=== PATIENT | male | born 1955 | race Caucasian/White ===

== ENCOUNTER 2023-06-11 10:29 | Inpatient (IN) | payer OTHER, MEDICARE ==
[~2023-06-11] VITALS: Ht 172.7 cm; Wt 97.1 kg
[2023-06-11 11:06] LABS: BASOPHILS # (AUTO) 0.1 K/uL (0.0-0.2); BASOPHILS % (AUTO) 0.5 % (0.0-2.0); EOSINOPHILS % (AUTO) 0.1 % (0.0-6.0); HEMATOCRIT 49 % (39-51); HEMOGLOBIN 15.9 g/dL (13.5-17.5); LYMPHOCYTES % (AUTO) 7.4 % (20.0-44.0); MEAN CORPUSCULAR HEMOGLOBIN 29 PG (26.0-33.0); MEAN CORPUSCULAR HGB CONC 33 g/dl (31.0-36.0); MEAN CORPUSCULAR VOLUME 89 fL (80-96); MONOCYTES # (AUTO) 0.7 K/uL (0.1-1.30); MONOCYTES % (AUTO) 5.6 % (2.0-12.0); NEUTROPHILS # (AUTO) 11.1 K/uL (1.8-8.9); NEUTROPHILS % (AUTO) 86.4 % (43.0-81.0); PLATELET COUNT (AUTO) 397 K/uL (150-450); RED BLOOD CELL COUNT(AUTO) 5.51 MIL/uL (4.5-6.0); RED CELL DISTRIBUTION WIDTH 14.1 % (11.5-15.0); WHITE BLOOD COUNT (AUTO) 12.8 K/uL (4.3-11.0)
[2023-06-11 11:21] LABS: INR 1.08 (0.91-1.10); PARTIAL THROMBOPLASTIN TIME 27.2 SEC (24.3-34.3); PROTHROMBIN TIME 11.1 SECS (9.2-11.1)
[2023-06-11 11:32] LABS: ALANINE AMINOTRANSFERASE 13 U/L (12-78); ALKALINE PHOSPHATASE 81 U/L (46-116); ASPARTATE AMINOTRANSFERASE 19 U/L (15-37); BILIRUBIN,DIRECT 0.2 mg/dL (0.0-0.2); BILIRUBIN,TOTAL 0.9 mg/dL (0.2-1.0); CALCIUM, SERUM 9.2 mg/dL (8.5-10.1); CARBON DIOXIDE 21 mmol/L (21-32); CHLORIDE 96 mmol/L (98-107); CREATININE 1.4 mg/dL (0.6-1.3); GLUCOSE 394 mg/dL (74-106); NT-PRO BNP 4394 pg/mL (0-125); POTASSIUM 5.3 mmol/L (3.5-5.1); SODIUM SERUM 132 mmol/L (136-145); TOTAL PROTEIN, SERUM 7.9 g/dL (6.4-8.2); UREA NITROGEN, BLOOD 32 mg/dL (7-18)
[2023-06-11] MEDS ORDERED: METOPROLOL TARTRATE INJ 5 MG/5 ML AMPUL ONE ×2 (11:56→12:07)
[2023-06-11] MEDS: METOPROLOL TARTRATE INJ 5 MG/5 ML AMPUL IV ONE ×2 (11:59→12:25)
[2023-06-11] MEDS ORDERED: METOPROLOL SUCCINATE 25 MG TAB.SR.24H ONE (13:10)
[2023-06-11] MEDS: METOPROLOL SUCCINATE 50 MG TAB.SR.24H PO SCH (13:27)
[2023-06-11] MEDS ORDERED: ENOXAPARIN SODIUM 100 MG/ML DISP.SYRIN SQ ONE (13:36)
[2023-06-11] MEDS: ENOXAPARIN SODIUM 100 MG/ML DISP.SYRIN SQ ONE (13:40)
[2023-06-11 14:17] LABS: THYROID STIMULATING HORMONE 0.666 uIU/mL (0.358-3.74)
[2023-06-11] MEDS ORDERED: MAG HYDROX/AL HYDROX/SIMETH 30 ML UDC PO PRN (17:30)
[2023-06-11] MEDS ORDERED: MAGNESIUM HYDROXIDE 30 ML UDC PO PRN (17:30)
[2023-06-11] MEDS ORDERED: Z GUARD REMEDY 4 OZ OINT TP PRN (17:30)
[2023-06-11] MEDS ORDERED: DICL100G26 TP (20:11)
[2023-06-11] MEDS ORDERED: GABA-532 PO (20:11)
[2023-06-11] MEDS ORDERED: SENN-261 PO (20:11)
[2023-06-11] MEDS ORDERED: LISI10TA29 PO (20:11)
[2023-06-11] MEDS ORDERED: IPRA3AMP23 IH (20:11)
[2023-06-11] MEDS ORDERED: HYDR-4076 PO (20:11)
[2023-06-11] MEDS ORDERED: POLY17PO4 PO (20:11)
[2023-06-11] MEDS ORDERED: ATOR80TA PO (20:11)
[2023-06-11] MEDS ORDERED: NALO4SPR BNOSTRILS (20:11)
[2023-06-11] MEDS ORDERED: ACET325T53 PO (20:11)
[2023-06-11] MEDS ORDERED: INSU100I47 SQ (20:11)
[2023-06-11] MEDS ORDERED: NA P133E RC (20:11)
[2023-06-11] MEDS ORDERED: GLUC1KIT IM (20:11)
[2023-06-11] MEDS ORDERED: LINA5TAB PO (20:11)
[2023-06-11] MEDS ORDERED: CARV3.122 PO (20:11)
[2023-06-11] MEDS ORDERED: INSU100I30 SQ (20:11)
[2023-06-11] MEDS ORDERED: NITR0.4T48 SL (20:11)
[2023-06-11] MEDS ORDERED: APIX2.5T PO (20:11)
[2023-06-11] MEDS ORDERED: LIDO700A30 TP ×2 (20:11)
[2023-06-11] MEDS ORDERED: ASPI-1420 PO (20:11)
[2023-06-11] MEDS ORDERED: PANT40TA2 PO (20:11)
[2023-06-11 20:35] VITALS: BP 116/94; TEMP 99; O2SAT 95
[2023-06-11] MEDS: METOPROLOL TARTRATE 25 MG TABLET PO SCH (21:23)
[2023-06-11] MEDS ORDERED: SODIUM POLYSTYRENE SULFONATE 15 G/60 ML BOTTLE ONE (21:38)
[2023-06-11] MEDS: SODIUM POLYSTYRENE SULFONATE 15 G/60 ML BOTTLE PO ONE (21:45)
[2023-06-12] VITALS (8 sets, daily range): BP systolic 87–123; BP diastolic 44–94; TEMP 98.1–99.3; O2SAT 94–96
[2023-06-12] MEDS: ENOXAPARIN SODIUM 100 MG/ML DISP.SYRIN SQ SCH (01:39)
[2023-06-12] MEDS ORDERED: DEXTROSE 50%-WATER 50 ML DISP.SYRIN IV PRN (05:30)
[2023-06-12] MEDS: INSULIN REGULAR, HUMAN 100 UNIT/ML 3 ML VIAL SQ PRN (06:02)
[2023-06-12] MEDS: BLOOD SUGAR DIAGNOSTIC 1 EACH STRIP VI SCH (06:03)
[2023-06-12] MEDS: DILTIAZEM HCL 30 MG TABLET PO SCH (06:05)
[2023-06-12 06:51] LABS: BASOPHILS # (AUTO) 0.1 K/uL (0.0-0.2); BASOPHILS % (AUTO) 0.8 % (0.0-2.0); EOSINOPHILS # (AUTO) 0.1 K/uL (0.0-0.7); EOSINOPHILS % (AUTO) 0.8 % (0.0-6.0); HEMATOCRIT 41 % (39-51); HEMOGLOBIN 13.9 g/dL (13.5-17.5); LYMPHOCYTES # (AUTO) 1.5 K/uL (0.8-4.8); LYMPHOCYTES % (AUTO) 14.2 % (20.0-44.0); MEAN CORPUSCULAR HEMOGLOBIN 30 PG (26.0-33.0); MEAN CORPUSCULAR HGB CONC 34 g/dl (31.0-36.0); MEAN CORPUSCULAR VOLUME 89 fL (80-96); MONOCYTES # (AUTO) 1.3 K/uL (0.1-1.30); MONOCYTES % (AUTO) 11.6 % (2.0-12.0); NEUTROPHILS # (AUTO) 7.9 K/uL (1.8-8.9); NEUTROPHILS % (AUTO) 72.6 % (43.0-81.0); PLATELET COUNT (AUTO) 308 K/uL (150-450); RED BLOOD CELL COUNT(AUTO) 4.66 MIL/uL (4.5-6.0); RED CELL DISTRIBUTION WIDTH 14.1 % (11.5-15.0); WHITE BLOOD COUNT (AUTO) 10.8 K/uL (4.3-11.0)
[2023-06-12 07:19] LABS: CALCIUM, SERUM 8.7 mg/dL (8.5-10.1); CREATININE 1.2 mg/dL (0.6-1.3); PHOSPHORUS 3.7 mg/dL (2.5-4.9); POTASSIUM 3.6 mmol/L (3.5-5.1)
[2023-06-12] MEDS: AMIODARONE HCL 200 MG TABLET PO SCH (09:45)
[2023-06-12] MEDS: APIXABAN 5 MG TABLET PO SCH (09:46)
[2023-06-12] MEDS ORDERED: NA PHOS,M-B/NA PHOS,DI-BA 1 EA ENEMA RC PRN (10:00)
[2023-06-12] MEDS ORDERED: ACETAMINOPHEN 325 MG TABLET PO PRN ×2 (10:00)
[2023-06-12] MEDS: IV NS 0.9% 1,000 ML IV PRN (10:02)
[2023-06-12 10:10] LABS: BASOPHILS # (AUTO) 0.1 K/uL (0.0-0.2); BASOPHILS % (AUTO) 0.6 % (0.0-2.0); EOSINOPHILS # (AUTO) 0.1 K/uL (0.0-0.7); EOSINOPHILS % (AUTO) 1.3 % (0.0-6.0); HEMATOCRIT 41 % (39-51); HEMOGLOBIN 13.5 g/dL (13.5-17.5); LYMPHOCYTES # (AUTO) 1.6 K/uL (0.8-4.8); LYMPHOCYTES % (AUTO) 14.5 % (20.0-44.0); MEAN CORPUSCULAR HEMOGLOBIN 29 PG (26.0-33.0); MEAN CORPUSCULAR HGB CONC 33 g/dl (31.0-36.0); MEAN CORPUSCULAR VOLUME 88 fL (80-96); MONOCYTES # (AUTO) 1.3 K/uL (0.1-1.30); MONOCYTES % (AUTO) 11.7 % (2.0-12.0); NEUTROPHILS # (AUTO) 8.1 K/uL (1.8-8.9); NEUTROPHILS % (AUTO) 71.9 % (43.0-81.0); PLATELET COUNT (AUTO) 297 K/uL (150-450); RED BLOOD CELL COUNT(AUTO) 4.64 MIL/uL (4.5-6.0); RED CELL DISTRIBUTION WIDTH 13.9 % (11.5-15.0); WHITE BLOOD COUNT (AUTO) 11.2 K/uL (4.3-11.0)
[2023-06-12 10:19] LABS: CALCIUM, SERUM 8.6 mg/dL (8.5-10.1); CREATININE 1.3 mg/dL (0.6-1.3); POTASSIUM 3.3 mmol/L (3.5-5.1)
[2023-06-12 10:24] LABS: ALBUMIN 2.3 g/dL (3.4-5.0); BILIRUBIN,TOTAL 0.6 mg/dL (0.2-1.0); PHOSPHORUS 3.1 mg/dL (2.5-4.9); TOTAL PROTEIN, SERUM 6.4 g/dL (6.4-8.2)
[2023-06-12] MEDS: POTASSIUM CHLORIDE 20 MEQ TAB.PRT.SR PO ONE (10:51)
[2023-06-12] MEDS: GABAPENTIN 100 MG CAPSULE PO SCH (13:51)
[2023-06-12] MEDS: SENNOSIDES 8.6 MG TABLET PO SCH (13:51)
[2023-06-12] MEDS: ACETAMINOPHEN 325 MG TABLET PO PRN (16:29)
[2023-06-12] MEDS ORDERED: APIXABAN 2.5 MG TABLET PO SCH (17:00)
[2023-06-12] MEDS: CARVEDILOL 3.125 MG TABLET PO SCH (17:00)
[2023-06-12] MEDS: IV NS 0.9% 500 ML IV ONE (18:18)
[2023-06-12] MEDS: ATORVASTATIN 40 MG TABLET PO SCH (21:42)
[2023-06-12] MEDS: *INSULIN REGULAR(HUMULIN R)HUM 100 UNIT/ML VIAL SQ PRN (21:49)
[2023-06-12] MEDS: INSULIN GLARGINE, 100 UNIT/ML CARTRIDGE SQ SCH (21:54)
[2023-06-13] VITALS (8 sets, daily range): BP systolic 91–117; BP diastolic 62–95; TEMP 91.7–98.8; O2SAT 93–97
[2023-06-13 01:26] LABS: CREATININE, URINE 159.9 MG/DL (30.0-125.0); URINE TOTAL PROTEIN 24.7 mg/dL (0-11.9)
[2023-06-13 01:41] LABS: APPEARANCE,URINE CLEAR (CLEAR); BILIRUBIN,URINE NEGATIVE (NEGATIVE); BLOOD, URINE NEGATIVE Ery/uL (NEGATIVE); COLOR,URINE YELLOW (YELLOW); KETONES,URINE NEGATIVE (NEGATIVE); LEUKOCYTE ESTERASE ,URINE NEGATIVE (NEGATIVE); NITRITE, URINE NEGATIVE (NEGATIVE); PROTEIN,URINE NEGATIVE (NEGATIVE); UGLUCOSE 3+ mg/dL (NEGATIVE); UROBILINOGEN,URINE 0.2 EU/dL (0.2)
[2023-06-13 01:42] LABS: EOSINOPHIL,URINE None Seen
[2023-06-13 07:26] LABS: BASOPHILS # (AUTO) 0.1 K/uL (0.0-0.2); BASOPHILS % (AUTO) 0.8 % (0.0-2.0); EOSINOPHILS # (AUTO) 0.4 K/uL (0.0-0.7); EOSINOPHILS % (AUTO) 4.4 % (0.0-6.0); HEMATOCRIT 38 % (39-51); HEMOGLOBIN 12.7 g/dL (13.5-17.5); LYMPHOCYTES # (AUTO) 1.7 K/uL (0.8-4.8); LYMPHOCYTES % (AUTO) 18.4 % (20.0-44.0); MEAN CORPUSCULAR HEMOGLOBIN 30 PG (26.0-33.0); MEAN CORPUSCULAR HGB CONC 33 g/dl (31.0-36.0); MEAN CORPUSCULAR VOLUME 89 fL (80-96); MONOCYTES # (AUTO) 0.9 K/uL (0.1-1.30); MONOCYTES % (AUTO) 9.5 % (2.0-12.0); NEUTROPHILS # (AUTO) 6.2 K/uL (1.8-8.9); NEUTROPHILS % (AUTO) 66.9 % (43.0-81.0); PLATELET COUNT (AUTO) 266 K/uL (150-450); RED BLOOD CELL COUNT(AUTO) 4.27 MIL/uL (4.5-6.0); RED CELL DISTRIBUTION WIDTH 13.8 % (11.5-15.0); WHITE BLOOD COUNT (AUTO) 9.3 K/uL (4.3-11.0)
[2023-06-13 08:06] LABS: CALCIUM, SERUM 8.2 mg/dL (8.5-10.1); POTASSIUM 3.2 mmol/L (3.5-5.1)
[2023-06-13] MEDS: PANTOPRAZOLE 40 MG TABLET.DR PO SCH (08:23)
[2023-06-13] MEDS: LISINOPRIL (10MG) 10 MG TABLET PO SCH (08:24)
[2023-06-13] MEDS: LINAGLIPTIN 5 MG TABLET PO SCH (08:26)
[2023-06-13] MEDS: ASPIRIN EC 81 MG TABLET.DR PO SCH (08:26)
[2023-06-13] MEDS ORDERED: POTASSIUM CHLORIDE 20 MEQ TAB.PRT.SR PO SCH (09:30)
[2023-06-13] MEDS: POTASSIUM CHLORIDE 20 MEQ TAB.PRT.SR PO SCH (09:46)
[2023-06-13] MEDS: CARVEDILOL 3.125 MG TABLET PO SCH (17:51)
[2023-06-13] MEDS: LIDOCAINE 5% (PATCH) 1 EA PATCH TP PRN (18:29)
[2023-06-13] MEDS: ONDANSETRON HCL/PF 4 MG/2 ML VIAL IVP PRN (21:40)
[2023-06-14] VITALS: BP 96/60; TEMP 99; O2SAT 94
[2023-06-14 04:00] VITALS: BP 99/73; TEMP 98.8; O2SAT 97
[2023-06-14 04:44] VITALS: BP 99/73; TEMP 98.8; O2SAT 97
[2023-06-14 06:34] LABS: BASOPHILS % (AUTO) 0.4 % (0.0-2.0); EOSINOPHILS # (AUTO) 0.5 K/uL (0.0-0.7); EOSINOPHILS % (AUTO) 4.2 % (0.0-6.0); HEMATOCRIT 37 % (39-51); HEMOGLOBIN 12.2 g/dL (13.5-17.5); LYMPHOCYTES # (AUTO) 1.2 K/uL (0.8-4.8); LYMPHOCYTES % (AUTO) 9.3 % (20.0-44.0); MEAN CORPUSCULAR HEMOGLOBIN 29 PG (26.0-33.0); MEAN CORPUSCULAR HGB CONC 33 g/dl (31.0-36.0); MEAN CORPUSCULAR VOLUME 89 fL (80-96); MONOCYTES # (AUTO) 1.2 K/uL (0.1-1.30); MONOCYTES % (AUTO) 9.2 % (2.0-12.0); NEUTROPHILS # (AUTO) 9.9 K/uL (1.8-8.9); NEUTROPHILS % (AUTO) 76.9 % (43.0-81.0); PLATELET COUNT (AUTO) 246 K/uL (150-450); RED BLOOD CELL COUNT(AUTO) 4.15 MIL/uL (4.5-6.0); RED CELL DISTRIBUTION WIDTH 13.8 % (11.5-15.0); WHITE BLOOD COUNT (AUTO) 12.9 K/uL (4.3-11.0)
[2023-06-14 07:20] LABS: BILIRUBIN,TOTAL 0.4 mg/dL (0.2-1.0); CALCIUM, SERUM 8.4 mg/dL (8.5-10.1); CREATININE 1.1 mg/dL (0.6-1.3); MAGNESIUM 1.7 mg/dL (1.8-2.4); PHOSPHORUS 3.1 mg/dL (2.5-4.9); POTASSIUM 4.2 mmol/L (3.5-5.1); TOTAL PROTEIN, SERUM 5.7 g/dL (6.4-8.2)
[2023-06-14 07:30] VITALS: BP 105/70; TEMP 99.5; O2SAT 96
[2023-06-14] MEDS: MAGNESIUM OXIDE 400 MG TABLET PO ONE (11:45)
[2023-06-14 16:00] VITALS: BP 93/72; TEMP 99; O2SAT 95
[2023-06-14 20:00] VITALS: BP 97/70; TEMP 97.8; O2SAT 98
[2023-06-15] VITALS: BP 100/74; TEMP 98.4; O2SAT 97
[2023-06-15 04:00] VITALS: BP 99/72; TEMP 98.1; O2SAT 96
[2023-06-15 06:28] VITALS: BP 99/72; TEMP 98.1; O2SAT 96
[2023-06-15 08:00] VITALS: BP 112/69; TEMP 98.6; O2SAT 95
[2023-06-15 12:00] VITALS: BP 100/71; TEMP 98.4; O2SAT 96
[2023-06-15 20:00] VITALS: BP 91/60; TEMP 98.8; O2SAT 96
[2023-06-16 08:45] VITALS: BP 122/78; TEMP 98.6; O2SAT 96
[2023-06-16 15:56] VITALS: BP 123/76; TEMP 99.3; O2SAT 97
[2023-06-16 20:00] VITALS: BP 103/70; TEMP 98.1; TEMP 98.2; O2SAT 96
[2023-06-17 07:00] VITALS: BP 114/68; TEMP 98.6; O2SAT 96
[2023-06-17 16:00] VITALS: BP 97/57; TEMP 97.5; O2SAT 94
== END 2023-06-17 20:25 | DRG 280 ==
LOC: ER 10:35 → TELE 18:11 → MED 06-15 21:55
PROVIDERS: ADMIT Internal Medicine; ATTEND Nurse Practitioner Acute Care
DX: I48.91 Unspecified atrial fibrillation (principal); I21.A1 Myocardial infarction type 2; N17.0 Acute kidney failure with tubular necrosis; I13.0 Hypertensive heart and chronic kidney disease with heart failure and stage 1 through stage 4 chronic kidney disease, or unspecified chronic kidney disease; I50.22 Chronic systolic (congestive) heart failure; I69.354 Hemiplegia and hemiparesis following cerebral infarction affecting left non-dominant side; E44.0 Moderate protein-calorie malnutrition; E87.1 Hypo-osmolality and hyponatremia; G93.40 Encephalopathy, unspecified; E11.22 Type 2 diabetes mellitus with diabetic chronic kidney disease; N18.9 Chronic kidney disease, unspecified; Z20.822 Contact with and (suspected) exposure to COVID-19; E11.40 Type 2 diabetes mellitus with diabetic neuropathy, unspecified; E11.65 Type 2 diabetes mellitus with hyperglycemia; Z79.4 Long term (current) use of insulin; Z79.82 Long term (current) use of aspirin; Z79.899 Other long term (current) drug therapy; Z79.01 Long term (current) use of anticoagulants; Z79.51 Long term (current) use of inhaled steroids; R26.9 Unspecified abnormalities of gait and mobility; M89.8X9 Other specified disorders of bone, unspecified site; Z91.018 Allergy to other foods; E78.5 Hyperlipidemia, unspecified; E86.9 Volume depletion, unspecified; N13.9 Obstructive and reflux uropathy, unspecified; Z68.32 Body mass index [BMI] 32.0-32.9, adult; E66.9 Obesity, unspecified; E87.5 Hyperkalemia; E87.6 Hypokalemia; E88.09 Other disorders of plasma-protein metabolism, not elsewhere classified; I69.398 Other sequelae of cerebral infarction; R26.89 Other abnormalities of gait and mobility
CPT/HCPCS: 36415; 71045-TC; 80048-TC; 80053-TC; 80076-TC; 82570-TC; 82962-TC; 83735-TC; 83880; 84100-TC; 84300-TC; 84439-TC; 84443-TC; 84484-TC; 85025-TC; 85730-TC; 93307-TC; 97110-TC; 97116-TC; 97530-TC; 97535-TC; A4223; G0378; J1650; J1815; J2405; J3490; J7030; J7040